=== PATIENT | female | born 1965 | race Caucasian/White ===

== ENCOUNTER 2022-09-05 08:52 | Day surgery (SDC) | payer OTHER ==
[~2022-09-05] VITALS: Ht 165.1 cm; Wt 68.0 kg
[2022-09-05] MEDS ORDERED: fentaNYL citrate 0.05 MG/ML - 50mL vial IV ONE (11:00)
[2022-09-05] MEDS ORDERED: PROPOFOL 200 MG/20 ML VIAL IV ONE (11:00)
[2022-09-05] MEDS ORDERED: SEVOFLURANE 250 ML BTL INH ONE (11:00)
[2022-09-05] MEDS ORDERED: METOCLOPRAMIDE 10 MG/2 ML INJ VIAL ONE (11:00)
[2022-09-05] MEDS ORDERED: MIDAZOLAM 2 MG/2 ML VIAL ONE ×2 (11:00→11:20)
[2022-09-05] MEDS ORDERED: ceFAZolin 1,000 MG VIAL ONE (11:00)
[2022-09-05] MEDS ORDERED: BUPIVACAINE-MPF 0.25% 30 ML VIAL INJ ONE (11:15)
[2022-09-05] MEDS ORDERED: fentaNYL citrate 0.05 MG/ML VIAL ONE (11:21)
[2022-09-05] MEDS ORDERED: diphenhydrAMINE 50 MG/ML VIAL IVP PRN (12:15)
[2022-09-05] MEDS ORDERED: ONDANSETRON 4 MG/2 ML VIAL IVP PRN (12:15)
[2022-09-05] MEDS ORDERED: HYDROmorphone 1 MG/ML AMP IVP PRN ×2 (12:15→12:25)
[2022-09-05] MEDS ORDERED: MEPERIDINE 25 MG/ML SYR IVP PRN (12:15)
[2022-09-05] MEDS ORDERED: ONDANSETRON 4 MG/2 ML VIAL IV PRN (12:25)
[2022-09-05] MEDS ORDERED: MORPHINE SULFATE 2 MG/ML SYR IVP PRN (12:25)
[2022-09-05] MEDS ORDERED: HYDROcodone/APAP 5/325 MG 1 TAB TAB PO PRN (12:25)
[2022-09-05] MEDS ORDERED: MORPHINE SULFATE 4 MG/ML SYR IV PRN (12:25)
== END 2022-09-05 14:00 | disposition home or self-care (01) ==
LOC: MDS 08:52 → MMU 08:53 → MDS 14:00
PROVIDERS: ATTEND Surgery
DX: L72.3 Sebaceous cyst (principal); D23.4 Other benign neoplasm of skin of scalp and neck; L92.8 Other granulomatous disorders of the skin and subcutaneous tissue; Z90.710 Acquired absence of both cervix and uterus; Z79.899 Other long term (current) drug therapy; Z20.822 Contact with and (suspected) exposure to COVID-19
CPT/HCPCS: 11422; 12041; 71046; 87426; 93005; J0690; J2250; J2704; J2765; J3010; J3490; J7060; J7120